=== PATIENT | female | born 1965 | race Caucasian/White ===

== ENCOUNTER 2021-11-30 20:20 | Emergency (ER) | payer OTHER ==
[2021-11-30 21:10] VITALS: PULSE 75; TEMP 97.7; BMI 24.5
[2021-11-30 22:17] VITALS: BP 113/68
== END 2021-11-30 23:25 | disposition home or self-care (01) ==
LOC: JER 20:20
DX: U07.1 COVID-19 (principal)
CPT/HCPCS: 99283-25

== ENCOUNTER 2021-12-01 17:30 | Emergency (ER) | payer OTHER ==
[2021-12-01 18:26] VITALS: BMI 24.5
[2021-12-01] MEDS ORDERED: BEBTELOVIMAB (EUA) 175 MG/2 ML VIAL IVPUSH ONE (19:46)
[2021-12-01 21:38] VITALS: BP 110/66; PULSE 78; TEMP 97.8
== END 2021-12-01 22:07 | disposition home or self-care (01) ==
LOC: JER 17:30
DX: U07.1 COVID-19 (principal)
CPT/HCPCS: 96374; 99284-25; Q0222